=== PATIENT | female | born 1950 | race Two or more races ===

== ENCOUNTER 2019-08-28 23:20 | Inpatient (IN) | payer OTHER ==
[~2019-08-28] VITALS: Ht 167.6 cm; Wt 120.5 kg
[~2019-08-28 23:20] MED LIST: ALL300T PO; ATOR10TA52 PO; DOXY-286 PO; ESCI10TA53 PO; FURO40TA4 PO; GLIP-110 PO; LINA5TAB PO; LISI-646 PO; MONT10TA23 PO; PRED-188 PO
[2019-08-29 00:40] LABS: Basophils # (auto) 0 10 ^3/uL (0-0.2); Basophils % (auto) 0.3 % (0.0-2.0); Eosinophils # (auto) 0 10 ^3/uL (0-0.8); Eosinophils % (auto) 0.1 % (0.0-7.0); Hematocrit 31.8 % (36.0-46.0); Hemoglobin 10.3 g/dL (12.2-16.2); Lymphocytes % (auto) 11.1 % (10.0-50.0); Mean Corpuscular Hemoglobin 28.4 pg (28.0-32.0); Mean Corpuscular Hgb Conc. 32.5 g/dL (32.0-36.0); Mean Corpuscular Volume 87.2 fL (80.0-100.0); Monocytes # (auto) 0.5 10 ^3/uL (0-1.3); Monocytes % (auto) 5.1 % (0.0-12.0); Neutrophils # (auto) 7.6 10 ^3/uL (1.6-8.6); Neutrophils % (auto) 83.4 % (37.0-80.0); Nucleated Red Blood Cells % 0.1 %; Platelet Count (auto) 239 10^3/uL (140-450); Red Blood Cells 3.65 10^6/uL (4.0-5.20); Red Cell Distribution Width 14.6 % (11.8-14.3); White Blood Cell 9.1 10^3/uL (4.4-10.8)
[2019-08-29 00:54] LABS: Alanine Aminotransferase 26 U/L (13-56); Albumin 3.1 g/dL (3.4-5.0); Anion Gap 6 (5-15); Aspartate Aminotransferase 22 U/L (15-37); BUN/Creatinine Ratio 24.7; Blood Urea Nitrogen 42 mg/dL (7-18); Calcium 8.8 mg/dL (8.5-10.1); Carbon Dioxide 31 mmol/L (21-32); Chloride 82 mmol/L (98-107); GFR African American 39 mL/min; GFR Non-African American 32 mL/min; Glucose 154 mg/dL (74-106); Potassium 4.4 mmol/L (3.5-5.1)
[2019-08-29 00:56] LABS: Sodium 119 mmol/L (136-145)
[2019-08-29 00:59] LABS: Alkaline Phosphatase 178 U/L (45-117); Bilirubin, Total 0.5 mg/dL (0.2-1.0); Total Protein 6.9 g/dL (6.4-8.2)
[2019-08-29 01:10] LABS: INR 1.04 (0.9-1.15); Partial Thromboplastin Time 29.3 sec (23.64-32.05)
[2019-08-29 01:13] LABS: Magnesium 1.4 mg/dL (1.6-2.6); Uric Acid 4.8 mg/dL (2.6-6.0)
[2019-08-29] MEDS ORDERED: SODIUM CHL 3% 500 ML IV ONE ×2 (01:30→03:00)
[2019-08-29] MEDS ORDERED: GABAPENTIN 300 MG CAP PO ONE (02:30)
[2019-08-29] MEDS ORDERED: DEXTROSE (50%) 50ML SYRG IV PRN (03:00)
[2019-08-29] MEDS ORDERED: TEMAZEPAM 15 MG CAP PO PRN (03:00)
[2019-08-29] MEDS ORDERED: ONDANSETRON HCL 4 MG/2 ML VIAL IV PRN (03:00)
[2019-08-29] MEDS ORDERED: MORPHINE SULF INJ 2 MG/ML SYRINGE 1ML IV PRN (03:00)
[2019-08-29] MEDS ORDERED: NITROGLYCERIN 0.4 MG SL TAB SL PRN (03:00)
[2019-08-29] MEDS ORDERED: FUROSEMIDE 40 MG/4 ML VIAL IV ONE (03:30)
[2019-08-29] MEDS ORDERED: FUROSEMIDE 20 MG/2 ML VIAL ONE (04:38)
[2019-08-29 04:50] LABS: Urine Amorphous Crystal FEW /hpf (None Seen); Urine Bacteria MOD /hpf (None Seen); Urine Blood Negative /uL (Negative); Urine Specific Gravity 1.007 (1.001-1.035); Urine WBC 53 /hpf (0 - 5)
[2019-08-29] MEDS: ACETAMINOPHEN 325 MG TAB PO PRN ×2 (05:40→12:57)
[2019-08-29] MEDS: InsuLIN REG 1unit/0.01ml Soln (100units/ml) SC SCH ×4 (06:24→22:00)
[2019-08-29] MEDS: ACCU-CHEK COMFORT CURVE STRIP VI SCH ×4 (06:24→22:16)
[2019-08-29] MEDS ORDERED: FUROSEMIDE 40 MG TAB PO SCH (10:00)
[2019-08-29] MEDS ORDERED: LISINOPRIL 20 MG TAB PO SCH (10:00)
[2019-08-29 10:30] VITALS: BP 156/64
[2019-08-29] MEDS: PANTOPRAZOLE 40 MG TAB PO SCH (11:05)
[2019-08-29] MEDS: ALLOPURINOL 300 MG TAB PO SCH (11:06)
[2019-08-29] MEDS ORDERED: MAGNESIUM OXIDE 400 MG TAB PO ONE (11:45)
[2019-08-29 12:02] LABS: BUN/Creatinine Ratio 24.2; Calcium 8.9 mg/dL (8.5-10.1); Potassium 4.2 mmol/L (3.5-5.1)
[2019-08-29 13:29] VITALS: BP 116/57
[2019-08-29] MEDS: SODIUM CHLORIDE 0.9% 1,000 ML IV SCH (15:56)
[2019-08-29] MEDS: levoFLOXacin 500MG 100 ML IV SCH (16:36)
[2019-08-29 17:23] VITALS: BP 110/50
[2019-08-29] MEDS ORDERED: FUROSEMIDE 20 MG/2 ML VIAL IV SCH (18:00)
[2019-08-29 21:35] LABS: BUN/Creatinine Ratio 21.5; Calcium 8.8 mg/dL (8.5-10.1); Potassium 4.3 mmol/L (3.5-5.1)
[2019-08-29 22:00] VITALS: BP 118/55
[2019-08-29] MEDS: ATORVASTATIN 20 MG TAB PO SCH (22:15)
[2019-08-29] MEDS: MONTELUKAST SODIUM 10 MG TAB PO SCH (22:15)
[2019-08-30] MEDS ORDERED: HYDROcodone-ACET 5/325MG TAB PO PRN (01:00)
[2019-08-30] MEDS: SODIUM CHLORIDE 0.9% 1,000 ML IV SCH (01:40)
[2019-08-30 05:00] VITALS: BP 142/75
[2019-08-30 05:34] LABS: Basophils # (auto) 0 10 ^3/uL (0-0.2); Basophils % (auto) 0.5 % (0.0-2.0); Eosinophils # (auto) 0 10 ^3/uL (0-0.8); Eosinophils % (auto) 0.7 % (0.0-7.0); Hemoglobin 9.6 g/dL (12.2-16.2); Lymphocytes # (auto) 1.5 10 ^3/uL (0.4-5.4); Lymphocytes % (auto) 23.2 % (10.0-50.0); Mean Corpuscular Hemoglobin 28.6 pg (28.0-32.0); Mean Corpuscular Volume 86.8 fL (80.0-100.0); Monocytes # (auto) 0.4 10 ^3/uL (0-1.3); Monocytes % (auto) 5.2 % (0.0-12.0); Neutrophils # (auto) 4.7 10 ^3/uL (1.6-8.6); Neutrophils % (auto) 70.4 % (37.0-80.0); Platelet Count (auto) 216 10^3/uL (140-450); Red Blood Cells 3.35 10^6/uL (4.0-5.20); Red Cell Distribution Width 14.9 % (11.8-14.3); White Blood Cell 6.7 10^3/uL (4.4-10.8)
[2019-08-30 05:55] LABS: Potassium 4.3 mmol/L (3.5-5.1)
[2019-08-30 06:03] LABS: Albumin 2.9 g/dL (3.4-5.0); BUN/Creatinine Ratio 23.2; Bilirubin, Total 0.5 mg/dL (0.2-1.0); Calcium 8.7 mg/dL (8.5-10.1); Total Protein 6.2 g/dL (6.4-8.2)
[2019-08-30] MEDS: ACCU-CHEK COMFORT CURVE STRIP VI SCH ×4 (06:53→21:42)
[2019-08-30] MEDS: InsuLIN REG 1unit/0.01ml Soln (100units/ml) SC SCH ×4 (06:53→21:42)
[2019-08-30 08:00] VITALS: BP 125/53
[2019-08-30 08:50] VITALS: BP 125/53
[2019-08-30] MEDS: levoFLOXacin 500MG 100 ML IV SCH (09:45)
[2019-08-30] MEDS: ALLOPURINOL 300 MG TAB PO SCH (09:45)
[2019-08-30] MEDS: PANTOPRAZOLE 40 MG TAB PO SCH (09:45)
[2019-08-30] MEDS ORDERED: FUROSEMIDE 40 MG/4 ML VIAL IV ONE (12:15)
[2019-08-30] MEDS ORDERED: FUROSEMIDE 20 MG/2 ML VIAL IV ONE (12:30)
[2019-08-30 12:47] VITALS: BP 114/55
[2019-08-30 16:40] VITALS: BP 149/64
[2019-08-30 17:04] LABS: Calcium 9.1 mg/dL (8.5-10.1); Potassium 4.6 mmol/L (3.5-5.1)
[2019-08-30 17:06] LABS: BUN/Creatinine Ratio 20.5
[2019-08-30] MEDS: ATORVASTATIN 20 MG TAB PO SCH (21:34)
[2019-08-30] MEDS: MONTELUKAST SODIUM 10 MG TAB PO SCH (21:34)
[2019-08-30 22:00] VITALS: BP 129/63
[2019-09-01] MEDS ORDERED: levoFLOXacin 500MG 100 ML IV SCH (15:30)
== END 2019-08-30 22:01 | disposition short-term general hospital (02) | DRG 641 ==
LOC: EDSEX 23:20 → EDBD 23:20 → ER 23:28 → TELE 23:29 → TELE-CENTR 08-29 09:45
PROVIDERS: ADMIT Nurse Practitioner; ATTEND Internal Medicine
DX: E87.1 Hypo-osmolality and hyponatremia (principal); N39.0 Urinary tract infection, site not specified; Z68.41 Body mass index [BMI] 40.0-44.9, adult; I13.0 Hypertensive heart and chronic kidney disease with heart failure and stage 1 through stage 4 chronic kidney disease, or unspecified chronic kidney disease; I50.9 Heart failure, unspecified; M17.12 Unilateral primary osteoarthritis, left knee; D63.8 Anemia in other chronic diseases classified elsewhere; E66.01 Morbid (severe) obesity due to excess calories; N18.3 Chronic kidney disease, stage 3 (moderate); M10.9 Gout, unspecified; E78.5 Hyperlipidemia, unspecified; K58.9 Irritable bowel syndrome, unspecified; J45.909 Unspecified asthma, uncomplicated; E11.22 Type 2 diabetes mellitus with diabetic chronic kidney disease; Z90.49 Acquired absence of other specified parts of digestive tract; Z79.899 Other long term (current) drug therapy
CPT/HCPCS: 36415; 70450; 71045; 73562; 80048; 80053; 81001; 82962; 83605; 83735; 83880; 83930; 83935; 84295; 84300; 84443; 84484; 84550; 85025; 85379; 85610; 85730; 87040; 87086; 93005; 93306; 93886; 93970; 97163; G0378; J1815; J1956

== ENCOUNTER 2022-07-22 08:36 | Inpatient (IN) | payer OTHER ==
[~2022-07-22] VITALS: Ht 167.6 cm; Wt 109.4 kg
[~2022-07-22 08:36] MED LIST changes: +ESCI-28 PO; -ESCI10TA53 PO; -LISI-646 PO; +LISI20TA28 PO
[2022-07-22] MEDS ORDERED: FUROSEMIDE 40 MG/4 ML VIAL IV ONE (09:00)
[2022-07-22] MEDS ORDERED: cefTRIAXone 1GM/50ML D5W 50 ML IV ONE (09:15)
[2022-07-22 09:21] LABS: Basophils # (auto) 0 10 ^3/uL (0-0.2); Basophils % (auto) 0.1 % (0.0-2.0); Eosinophils # (auto) 0 10 ^3/uL (0-0.8); Hematocrit 30.2 % (36.0-46.0); Hemoglobin 10.1 g/dL (12.2-16.2); Lymphocytes # (auto) 0.3 10 ^3/uL (0.4-5.4); Lymphocytes % (auto) 2.1 % (10.0-50.0); Mean Corpuscular Hemoglobin 30.5 pg (28.0-32.0); Mean Corpuscular Hgb Conc. 33.4 g/dL (32.0-36.0); Mean Corpuscular Volume 91.4 fL (80.0-100.0); Monocytes # (auto) 0.5 10 ^3/uL (0-1.3); Monocytes % (auto) 3.2 % (0.0-12.0); Neutrophils # (auto) 14.7 10 ^3/uL (1.6-8.6); Neutrophils % (auto) 94.6 % (37.0-80.0); Red Blood Cells 3.31 10^6/uL (4.0-5.20); White Blood Cell 15.5 10^3/uL (4.4-10.8)
[2022-07-22 09:40] LABS: Albumin 3.5 g/dL (3.4-5.0); BUN/Creatinine Ratio 19.8; Calcium 8.7 mg/dL (8.5-10.1)
[2022-07-22 09:42] LABS: Bilirubin, Total 1.1 mg/dL (0.2-1.0); Total Protein 7.2 g/dL (6.4-8.2)
[2022-07-22] MEDS ORDERED: LISI-285 PO (13:46)
[2022-07-22] MEDS ORDERED: ALL300T PO (13:46)
[2022-07-22] MEDS ORDERED: ESCI-34 PO (13:46)
[2022-07-22] MEDS ORDERED: FURO40TA4 PO (13:46)
[2022-07-22] MEDS ORDERED: MONT-8 PO (13:46)
[2022-07-22] MEDS ORDERED: GLIP5TAB12 PO (13:46)
[2022-07-22] MEDS ORDERED: ATOR10TA52 PO (13:47)
[2022-07-22] MEDS ORDERED: methylPREDNISolone SOD SUCC 125 MG/2 ML VL IV ONE (14:15)
[2022-07-22] MEDS ORDERED: FUROSEMIDE 20 MG/2 ML VIAL IV ONE (14:15)
[2022-07-22] MEDS ORDERED: AZITHROMYCIN 500MG/ 250ML 250 ML IV ONE (14:15)
[2022-07-22] MEDS ORDERED: DEXTROSE (50%) 50ML SYRG IV PRN (14:15)
[2022-07-22] MEDS ORDERED: PANTOPRAZOLE 40 MG/10 ML VIAL INJ IV ONE (14:15)
[2022-07-22] MEDS ORDERED: ALBUTEROL SULF 2.5 MG/0.5ML(0.5%) NEB SOLN NEB PRN (14:15)
[2022-07-22] MEDS ORDERED: MORPHINE SULFATE INJ 2 MG/ml SYRG IV PRN (14:15)
[2022-07-22] MEDS ORDERED: NITROGLYCERIN 0.4 MG SL TAB SL PRN (14:15)
[2022-07-22 15:04] VITALS: BP 143/63
[2022-07-22 15:39] LABS: Magnesium 1.5 mg/dL (1.6-2.6)
[2022-07-22 15:41] LABS: Phosphorus 2.2 mg/dL (2.5-4.90)
[2022-07-22] MEDS ORDERED: ALBUTEROL MEDNEB 2.5 mg/3ml NEB ONE ×3 (15:52→22:15)
[2022-07-22] MEDS: ACCU-CHEK COMFORT CURVE STRIP VI SCH ×2 (17:00→22:11)
[2022-07-22] MEDS: InsuLIN REG 1unit/0.01ml Soln (100units/ml) SC SCH ×2 (17:43→22:17)
[2022-07-22] MEDS: IPRATROPIUM BROM 0.5 MG/2.5ML INH SOL NEB SCH ×2 (18:52→22:59)
[2022-07-22] MEDS: ALBUTEROL SULF 2.5 MG/0.5ML(0.5%) NEB SOLN NEB SCH ×2 (18:53→22:59)
[2022-07-22] MEDS: methylPREDNISolone SOD SUCC 125 MG/2 ML VL IV SCH (22:18)
[2022-07-22] MEDS: HEPARIN SODIUM (PORCINE) 5000 UNITS/ML 1ML VIAL SC SCH (22:21)
[2022-07-22] MEDS: ATORVASTATIN 20 MG TAB PO SCH (22:22)
[2022-07-23] MEDS: ALBUTEROL SULF 2.5 MG/0.5ML(0.5%) NEB SOLN NEB SCH ×6 (02:00→22:53)
[2022-07-23] MEDS: IPRATROPIUM BROM 0.5 MG/2.5ML INH SOL NEB SCH ×6 (02:00→22:53)
[2022-07-23 05:08] LABS: Hematocrit 31.8 % (36.0-46.0); Hemoglobin 10.3 g/dL (12.2-16.2); Mean Corpuscular Hemoglobin 29.5 pg (28.0-32.0); Mean Corpuscular Hgb Conc. 32.3 g/dL (32.0-36.0); Mean Corpuscular Volume 91.5 fL (80.0-100.0); Red Blood Cells 3.48 10^6/uL (4.0-5.20); Red Cell Distribution Width 15.2 % (11.8-14.3)
[2022-07-23 05:10] LABS: Basophils % (manual) 0 (0.0-2.0); Blast Cells 0; Eosinophils % (manual) 0 (0-7); Lymphocytes % (manual) 0 (10.0-50.0); Metamyelocytes % 0; Monocytes % (manual) 0 (0-12); Myelocytes % 0; Promyelocytes % 0; Reactive Lymphocytes 0
[2022-07-23 05:27] LABS: Albumin 3.1 g/dL (3.4-5.0); Calcium 9.5 mg/dL (8.5-10.1); Potassium 4.4 mmol/L (3.5-5.1)
[2022-07-23 05:30] LABS: Bilirubin, Total 0.8 mg/dL (0.2-1.0); Total Protein 7.1 g/dL (6.4-8.2)
[2022-07-23 05:32] LABS: Band Neutrophils % (manual) 33
[2022-07-23] MEDS ORDERED: ALBUTEROL MEDNEB 2.5 mg/3ml NEB ONE ×5 (05:44→21:54)
[2022-07-23] MEDS: ACCU-CHEK COMFORT CURVE STRIP VI SCH ×4 (06:25→22:14)
[2022-07-23] MEDS: InsuLIN REG 1unit/0.01ml Soln (100units/ml) SC SCH ×4 (06:28→22:16)
[2022-07-23] MEDS: cefTRIAXone 1GM/50ML D5W 50 ML IV SCH (08:56)
[2022-07-23] MEDS ORDERED: AZITHROMYCIN 500MG/ 250ML 250 ML IV SCH (10:00)
[2022-07-23] MEDS ORDERED: PANTOPRAZOLE 40 MG/10 ML VIAL INJ IV SCH (10:00)
[2022-07-23] MEDS: ALLOPURINOL 300 MG TAB PO SCH (10:23)
[2022-07-23] MEDS: methylPREDNISolone SOD SUCC 125 MG/2 ML VL IV SCH ×2 (10:24→22:32)
[2022-07-23] MEDS: FUROSEMIDE 20 MG/2 ML VIAL IV SCH (10:24)
[2022-07-23] MEDS: CITALOPRAM HYDROBR 20 MG TAB PO SCH (10:25)
[2022-07-23] MEDS: HCTZ 25 MG TAB PO SCH (10:25)
[2022-07-23] MEDS: MONTELUKAST SODIUM 10 MG TAB PO SCH (10:26)
[2022-07-23] MEDS: LISINOPRIL 20 MG TAB PO SCH (10:26)
[2022-07-23] MEDS: HEPARIN SODIUM (PORCINE) 5000 UNITS/ML 1ML VIAL SC SCH ×2 (10:28→22:32)
[2022-07-23] MEDS: MAGNESIUM SULFATE 1GM/100ML 100 ML IV SCH ×2 (13:52→16:42)
[2022-07-23 15:18] LABS: Urine Bacteria FEW /hpf (None Seen); Urine Blood Negative /uL (Negative); Urine Hyaline Cast FEW /lpf (0 - 2); Urine Mucus FEW (None Seen); Urine WBC 1 /hpf (0 - 5)
[2022-07-23 15:25] LABS: Protein, Urine 79.1 mg/dL (0.0-11.9)
[2022-07-23] MEDS ORDERED: IPRATROPIUM BROM 0.5 MG/2.5ML INH SOL ONE (18:12)
[2022-07-23 19:23] VITALS: BP 135/67
[2022-07-23 22:00] VITALS: BP 133/64
[2022-07-23] MEDS: ATORVASTATIN 20 MG TAB PO SCH (22:31)
[2022-07-24] MEDS ORDERED: ALBUTEROL MEDNEB 2.5 mg/3ml NEB ONE ×6 (01:58→21:39)
[2022-07-24] MEDS: IPRATROPIUM BROM 0.5 MG/2.5ML INH SOL NEB SCH ×6 (02:29→21:51)
[2022-07-24] MEDS: ALBUTEROL SULF 2.5 MG/0.5ML(0.5%) NEB SOLN NEB SCH ×6 (02:29→21:51)
[2022-07-24 05:00] VITALS: BP 144/71
[2022-07-24] MEDS: ACCU-CHEK COMFORT CURVE STRIP VI SCH ×4 (06:51→21:58)
[2022-07-24] MEDS: InsuLIN REG 1unit/0.01ml Soln (100units/ml) SC SCH ×4 (06:57→21:58)
[2022-07-24 08:00] VITALS: BP 110/72
[2022-07-24 08:33] VITALS: BP 110/72
[2022-07-24] MEDS: HEPARIN SODIUM (PORCINE) 5000 UNITS/ML 1ML VIAL SC SCH ×2 (09:00→21:56)
[2022-07-24] MEDS: HCTZ 25 MG TAB PO SCH (09:11)
[2022-07-24] MEDS: CITALOPRAM HYDROBR 20 MG TAB PO SCH (09:12)
[2022-07-24] MEDS: AZITHROMYCIN 250 MG TAB PO SCH (09:12)
[2022-07-24] MEDS: ALLOPURINOL 300 MG TAB PO SCH (09:13)
[2022-07-24] MEDS: LISINOPRIL 20 MG TAB PO SCH (09:13)
[2022-07-24] MEDS: MONTELUKAST SODIUM 10 MG TAB PO SCH (09:13)
[2022-07-24] MEDS: FUROSEMIDE 20 MG/2 ML VIAL IV SCH (09:14)
[2022-07-24] MEDS: methylPREDNISolone SOD SUCC 125 MG/2 ML VL IV SCH ×2 (09:14→21:57)
[2022-07-24] MEDS: cefTRIAXone 1GM/50ML D5W 50 ML IV SCH (09:14)
[2022-07-24 12:18] VITALS: BP 127/67
[2022-07-24 17:07] VITALS: BP 150/70
[2022-07-24] MEDS: ATORVASTATIN 20 MG TAB PO SCH (21:57)
[2022-07-24 22:00] VITALS: BP 116/80
[2022-07-25] MEDS ORDERED: ALBUTEROL MEDNEB 2.5 mg/3ml NEB ONE ×6 (01:59→22:12)
[2022-07-25] MEDS: ALBUTEROL SULF 2.5 MG/0.5ML(0.5%) NEB SOLN NEB SCH ×6 (02:08→22:32)
[2022-07-25] MEDS: IPRATROPIUM BROM 0.5 MG/2.5ML INH SOL NEB SCH ×6 (02:08→22:33)
[2022-07-25 05:00] VITALS: BP 135/65
[2022-07-25] MEDS: ACCU-CHEK COMFORT CURVE STRIP VI SCH ×4 (06:21→22:45)
[2022-07-25] MEDS: InsuLIN REG 1unit/0.01ml Soln (100units/ml) SC SCH ×4 (06:22→22:46)
[2022-07-25 09:00] VITALS: BP 136/59
[2022-07-25] MEDS: CITALOPRAM HYDROBR 20 MG TAB PO SCH (09:32)
[2022-07-25] MEDS: HCTZ 25 MG TAB PO SCH (09:32)
[2022-07-25] MEDS: ALLOPURINOL 300 MG TAB PO SCH (09:33)
[2022-07-25] MEDS: MONTELUKAST SODIUM 10 MG TAB PO SCH (09:33)
[2022-07-25] MEDS: AZITHROMYCIN 250 MG TAB PO SCH (09:33)
[2022-07-25] MEDS: LISINOPRIL 20 MG TAB PO SCH (09:33)
[2022-07-25] MEDS: methylPREDNISolone SOD SUCC 125 MG/2 ML VL IV SCH ×2 (09:34→22:43)
[2022-07-25] MEDS: cefTRIAXone 1GM/50ML D5W 50 ML IV SCH (09:34)
[2022-07-25] MEDS: FUROSEMIDE 20 MG/2 ML VIAL IV SCH (09:34)
[2022-07-25] MEDS: HEPARIN SODIUM (PORCINE) 5000 UNITS/ML 1ML VIAL SC SCH ×2 (09:35→22:43)
[2022-07-25 13:00] VITALS: BP 148/74
[2022-07-25 15:05] LABS: BUN/Creatinine Ratio 30.4; Calcium 9.4 mg/dL (8.5-10.1)
[2022-07-25 16:38] VITALS: BP 148/74
[2022-07-25 17:00] VITALS: BP 139/74
[2022-07-25 22:00] VITALS: BP 131/74
[2022-07-25] MEDS: ATORVASTATIN 20 MG TAB PO SCH (22:44)
[2022-07-26] MEDS ORDERED: ALBUTEROL MEDNEB 2.5 mg/3ml NEB ONE ×6 (02:07→21:58)
[2022-07-26] MEDS: IPRATROPIUM BROM 0.5 MG/2.5ML INH SOL NEB SCH ×6 (02:40→22:12)
[2022-07-26] MEDS: ALBUTEROL SULF 2.5 MG/0.5ML(0.5%) NEB SOLN NEB SCH ×6 (02:40→22:12)
[2022-07-26 05:00] VITALS: BP 131/74
[2022-07-26] MEDS: ACCU-CHEK COMFORT CURVE STRIP VI SCH ×4 (06:43→22:00)
[2022-07-26] MEDS: InsuLIN REG 1unit/0.01ml Soln (100units/ml) SC SCH ×4 (06:46→22:38)
[2022-07-26 09:00] VITALS: BP 136/70
[2022-07-26] MEDS: FUROSEMIDE 20 MG/2 ML VIAL IV SCH (09:49)
[2022-07-26] MEDS: methylPREDNISolone SOD SUCC 125 MG/2 ML VL IV SCH ×2 (09:49→22:22)
[2022-07-26] MEDS: cefTRIAXone 1GM/50ML D5W 50 ML IV SCH (09:49)
[2022-07-26] MEDS: AZITHROMYCIN 250 MG TAB PO SCH (09:50)
[2022-07-26] MEDS: LISINOPRIL 20 MG TAB PO SCH (09:50)
[2022-07-26] MEDS: HCTZ 25 MG TAB PO SCH (09:50)
[2022-07-26] MEDS: CITALOPRAM HYDROBR 20 MG TAB PO SCH (09:50)
[2022-07-26] MEDS: MONTELUKAST SODIUM 10 MG TAB PO SCH (09:50)
[2022-07-26] MEDS: ALLOPURINOL 300 MG TAB PO SCH (09:50)
[2022-07-26] MEDS: HEPARIN SODIUM (PORCINE) 5000 UNITS/ML 1ML VIAL SC SCH ×2 (09:52→22:36)
[2022-07-26 13:08] VITALS: BP 139/74
[2022-07-26] MEDS ORDERED: ALB5IS NEB (13:20)
[2022-07-26] MEDS ORDERED: IPR002IS NEB (13:20)
[2022-07-26] MEDS ORDERED: ALBUAER3 IN (13:23)
[2022-07-26] MEDS ORDERED: PRED20TA2 PO (13:23)
[2022-07-26] MEDS ORDERED: AZIT500T66 PO (13:23)
[2022-07-26 17:00] VITALS: BP 142/66
[2022-07-26 22:00] VITALS: BP 130/76
[2022-07-26] MEDS: ATORVASTATIN 20 MG TAB PO SCH (22:21)
[2022-07-27] MEDS ORDERED: ALBUTEROL MEDNEB 2.5 mg/3ml NEB ONE ×6 (01:51→21:52)
[2022-07-27] MEDS: ALBUTEROL SULF 2.5 MG/0.5ML(0.5%) NEB SOLN NEB SCH ×6 (01:55→22:11)
[2022-07-27] MEDS: IPRATROPIUM BROM 0.5 MG/2.5ML INH SOL NEB SCH ×6 (01:55→22:11)
[2022-07-27 05:00] VITALS: BP 130/65
[2022-07-27] MEDS: ACCU-CHEK COMFORT CURVE STRIP VI SCH ×4 (06:44→21:46)
[2022-07-27] MEDS: InsuLIN REG 1unit/0.01ml Soln (100units/ml) SC SCH ×4 (06:45→21:46)
[2022-07-27] MEDS: cefTRIAXone 1GM/50ML D5W 50 ML IV SCH (08:58)
[2022-07-27] MEDS: methylPREDNISolone SOD SUCC 125 MG/2 ML VL IV SCH ×2 (08:58→21:45)
[2022-07-27] MEDS: CITALOPRAM HYDROBR 20 MG TAB PO SCH (08:59)
[2022-07-27] MEDS: MONTELUKAST SODIUM 10 MG TAB PO SCH (08:59)
[2022-07-27] MEDS: AZITHROMYCIN 250 MG TAB PO SCH (08:59)
[2022-07-27] MEDS: FUROSEMIDE 20 MG/2 ML VIAL IV SCH (08:59)
[2022-07-27 09:00] VITALS: BP 130/73
[2022-07-27] MEDS: ALLOPURINOL 300 MG TAB PO SCH (09:00)
[2022-07-27] MEDS: HEPARIN SODIUM (PORCINE) 5000 UNITS/ML 1ML VIAL SC SCH ×2 (09:10→21:47)
[2022-07-27 13:03] VITALS: BP 135/68
[2022-07-27 17:00] VITALS: BP 158/86
[2022-07-27] MEDS: ATORVASTATIN 20 MG TAB PO SCH (21:46)
[2022-07-27 22:00] VITALS: BP 112/66
[2022-07-28] MEDS ORDERED: ALBUTEROL MEDNEB 2.5 mg/3ml NEB ONE ×4 (02:09→13:39)
[2022-07-28] MEDS: IPRATROPIUM BROM 0.5 MG/2.5ML INH SOL NEB SCH ×4 (02:45→14:01)
[2022-07-28] MEDS: ALBUTEROL SULF 2.5 MG/0.5ML(0.5%) NEB SOLN NEB SCH ×4 (02:45→14:01)
[2022-07-28 05:00] VITALS: BP 132/70
[2022-07-28] MEDS: ACCU-CHEK COMFORT CURVE STRIP VI SCH ×2 (06:09→12:15)
[2022-07-28] MEDS: InsuLIN REG 1unit/0.01ml Soln (100units/ml) SC SCH ×2 (06:09→12:16)
[2022-07-28 06:11] LABS: Potassium 4.3 mmol/L (3.5-5.1)
[2022-07-28 06:16] LABS: BUN/Creatinine Ratio 41.6
[2022-07-28 09:00] VITALS: BP 122/74
[2022-07-28 09:23] VITALS: BP 132/70
[2022-07-28] MEDS: cefTRIAXone 1GM/50ML D5W 50 ML IV SCH (09:31)
[2022-07-28] MEDS: FUROSEMIDE 20 MG/2 ML VIAL IV SCH (09:31)
[2022-07-28] MEDS: methylPREDNISolone SOD SUCC 125 MG/2 ML VL IV SCH (09:31)
[2022-07-28] MEDS: CITALOPRAM HYDROBR 20 MG TAB PO SCH (09:32)
[2022-07-28] MEDS: MONTELUKAST SODIUM 10 MG TAB PO SCH (09:32)
[2022-07-28] MEDS: AZITHROMYCIN 250 MG TAB PO SCH (09:32)
[2022-07-28] MEDS: ALLOPURINOL 300 MG TAB PO SCH (09:32)
[2022-07-28] MEDS: HEPARIN SODIUM (PORCINE) 5000 UNITS/ML 1ML VIAL SC SCH (09:43)
== END 2022-07-28 13:35 | disposition home health service (06) | DRG 871 ==
LOC: EDBD 08:36 → ER 08:36 → TELE 14:09 → TELE-EAST 07-23 18:32
PROVIDERS: ADMIT Nurse Practitioner Family; ATTEND Internal Medicine
DX: A41.9 Sepsis, unspecified organism (principal); J18.9 Pneumonia, unspecified organism; J96.21 Acute and chronic respiratory failure with hypoxia; N17.0 Acute kidney failure with tubular necrosis; J96.22 Acute and chronic respiratory failure with hypercapnia; I13.0 Hypertensive heart and chronic kidney disease with heart failure and stage 1 through stage 4 chronic kidney disease, or unspecified chronic kidney disease; J44.1 Chronic obstructive pulmonary disease with (acute) exacerbation; Z68.41 Body mass index [BMI] 40.0-44.9, adult; J44.0 Chronic obstructive pulmonary disease with (acute) lower respiratory infection; N18.32 Chronic kidney disease, stage 3b; M10.9 Gout, unspecified; R74.01 Elevation of levels of liver transaminase levels; E11.21 Type 2 diabetes mellitus with diabetic nephropathy; I50.9 Heart failure, unspecified; E11.22 Type 2 diabetes mellitus with diabetic chronic kidney disease; E11.65 Type 2 diabetes mellitus with hyperglycemia; E66.01 Morbid (severe) obesity due to excess calories; E78.5 Hyperlipidemia, unspecified; Z66 Do not resuscitate; D63.1 Anemia in chronic kidney disease; E83.42 Hypomagnesemia; F12.90 Cannabis use, unspecified, uncomplicated; Z80.3 Family history of malignant neoplasm of breast; Z80.41 Family history of malignant neoplasm of ovary; Z81.8 Family history of other mental and behavioral disorders; Z82.0 Family history of epilepsy and other diseases of the nervous system; Z82.3 Family history of stroke; Z82.49 Family history of ischemic heart disease and other diseases of the circulatory system; Z82.5 Family history of asthma and other chronic lower respiratory diseases; Z83.3 Family history of diabetes mellitus; Z85.828 Personal history of other malignant neoplasm of skin; Z87.891 Personal history of nicotine dependence; Z99.81 Dependence on supplemental oxygen; Z90.49 Acquired absence of other specified parts of digestive tract; Z68.38 Body mass index [BMI] 38.0-38.9, adult
CPT/HCPCS: 36415; 71045; 76775; 78582; 80048; 80053; 81001; 82570; 82962; 83605; 83735; 83880; 83970; 84100; 84156; 84300; 84484; 85007; 85025; 85027; 85379; 87040; 87086; 87426; 87804; 93005; 93306; 94640; 96365; 96375; 99291; C9113; G0378; J0696; J1815

== ENCOUNTER 2023-03-26 08:01 | Emergency (ER) | payer OTHER ==
[~2023-03-26] VITALS: Ht 167.6 cm; Wt 113.6 kg
[~2023-03-26 08:01] MED LIST changes: +ALB5IS NEB; +ALBUAER3 IN; +AZIT500T66 PO; -DOXY-286 PO; -ESCI-28 PO; +ESCI1TAB37 PO; -GLIP-110 PO; +IPR002IS NEB; -LISI20TA28 PO; +MONT-8 PO; +PRED20TA2 PO
[2023-03-26] MEDS ORDERED: IPRATROPIUM BROM 0.5 MG/2.5ML INH SOL NEB ONE (08:30)
[2023-03-26] MEDS ORDERED: ALBUTEROL SULF 2.5 MG/0.5ML(0.5%) NEB SOLN NEB ONE ×2 (08:30→11:30)
[2023-03-26 08:50] LABS: Basophils # (auto) 0 10 ^3/uL (0-0.2); Basophils % (auto) 0.3 % (0.0-2.0); Eosinophils # (auto) 0 10 ^3/uL (0-0.8); Hemoglobin 9.6 g/dL (12.2-16.2); Lymphocytes # (auto) 0.9 10 ^3/uL (0.4-5.4); Lymphocytes % (auto) 10.5 % (10.0-50.0); Mean Corpuscular Hemoglobin 29.2 pg (28.0-32.0); Mean Corpuscular Hgb Conc. 32.2 g/dL (32.0-36.0); Mean Corpuscular Volume 90.8 fL (80.0-100.0); Monocytes # (auto) 0.7 10 ^3/uL (0-1.3); Monocytes % (auto) 7.9 % (0.0-12.0); Neutrophils # (auto) 6.7 10 ^3/uL (1.6-8.6); Neutrophils % (auto) 81.3 % (37.0-80.0); Red Cell Distribution Width 15.3 % (11.8-14.3); White Blood Cell 8.3 10^3/uL (4.4-10.8)
[2023-03-26 08:58] LABS: Alanine Aminotransferase 17 U/L (7-40); Alkaline Phosphatase 156 U/L (46-116); Anion Gap 4 (5-15); Aspartate Aminotransferase 19 U/L (13-40); BUN/Creatinine Ratio 13.6 (10.0-20.0); Bilirubin, Total 0.5 mg/dL (0.2-1.0); Blood Urea Nitrogen 24 mg/dL (9-23); Calcium 8.8 mg/dL (8.7-10.4); Carbon Dioxide 30 mmol/L (20-30); Chloride 105 mmol/L (98-107); Glucose 108 mg/dL (74-106); Potassium 4.6 mmol/L (3.5-5.1); Sodium 139 mmol/L (136-145); Total Protein 6.6 g/dL (5.7-8.2)
[2023-03-26 09:10] VITALS: PULSE 62; RESP 20; O2SAT 93
[2023-03-26] MEDS ORDERED: DexAMETHasone SOD PHOS 10MG/1ML VIAL INJ IV ONE (11:30)
[2023-03-26] MEDS ORDERED: CLINDAMYCIN 600MG IV 50 ML IV ONE (11:30)
[2023-03-26] MEDS ORDERED: FUROSEMIDE 20 MG/2 ML VIAL IV ONE (11:30)
[2023-03-26] MEDS ORDERED: VANCOMYCIN PER PHARMACY 1,000 MG IV SCH (11:30)
[2023-03-26] MEDS ORDERED: PANTOPRAZOLE 40 MG/10 ML VIAL INJ IV ONE (11:30)
[2023-03-26] MEDS ORDERED: PIPERACILLIN-TAZOB 3.375GM 100 ML IV ONE (12:00)
[2023-03-26] MEDS ORDERED: ALBUTEROL MEDNEB 2.5 mg/3ml NEB ONE (12:12)
[2023-03-26 12:24] LABS: Base Excess 2.2 mmol/L (-2.0-2.0)
[2023-03-26 12:31] LABS: INR 1.02 (0.9-1.15); Partial Thromboplastin Time 31.9 SEC (24.5-34.5); Prothrombin Time 10.7 sec (9.3-11.8)
[2023-03-26] MEDS ORDERED: VANCOMYCIN 1GM/250ML 250 ML IV ONE (13:00)
[2023-03-26 13:53] LABS: COVID19 ANTIGEN SOFIA FIA POSITIVE (NEGATIVE)
[2023-03-26] MEDS ORDERED: ALBUTEROL SULF HFA 90MCG INH 200DOSE IN PRN (14:30)
[2023-03-26] MEDS ORDERED: ACETAMINOPHEN 500 MG TAB PO PRN (14:30)
[2023-03-26] MEDS ORDERED: REMDESIVIR PER PHARMACY 0 ML IV SCH (14:30)
[2023-03-26 15:00] VITALS: BP 165/68; PULSE 80; RESP 20; TEMP 99.9; O2SAT 94
[2023-03-26 15:03] LABS: Alanine Aminotransferase 12 U/L (7-40); Albumin 3.8 g/dL (3.2-4.8); Alkaline Phosphatase 128 U/L (46-116); Anion Gap 8 (5-15); Aspartate Aminotransferase 21 U/L (13-40); BUN/Creatinine Ratio 12.5 (10.0-20.0); Blood Urea Nitrogen 22 mg/dL (9-23); Carbon Dioxide 27 mmol/L (20-30); Chloride 104 mmol/L (98-107); Glucose 117 mg/dL (74-106); Potassium 4.6 mmol/L (3.5-5.1); Sodium 139 mmol/L (136-145)
[2023-03-26 15:04] LABS: Bilirubin, Total 0.4 mg/dL (0.2-1.0); Total Protein 6.6 g/dL (5.7-8.2)
[2023-03-26 15:12] LABS: CRP High Sensitivity 11.11 mg/dL (<1.0)
[2023-03-26 15:19] LABS: Thyroid Stimulating Hormone 1.69 uIU/mL (0.55-4.78)
[2023-03-26 16:10] LABS: Magnesium 1.4 mg/dL (1.6-2.6)
[2023-03-26] MEDS ORDERED: REMDESIVIR 200 MG in NS 210ml LOADING DOSE ADULT IV ONE (17:00)
[2023-03-26] MEDS ORDERED: PIPERACILLIN-TAZOB 3.375GM 100 ML IV SCH (20:00)
[2023-03-27] MEDS ORDERED: AZITHROMYCIN 500MG/ 250ML 250 ML IV SCH (10:00)
[2023-03-27] MEDS ORDERED: ZINC SULFATE 220mg CAP or TAB PO SCH (10:00)
[2023-03-27] MEDS ORDERED: REMDESIVIR 100mg 100 MG in SODIUM CHL 0.9% 230 ML IV SCH (15:00)
== END 2023-03-26 15:35 | disposition short-term general hospital (02) ==
LOC: EDBD 08:01 → ER 08:01
DX: U07.1 COVID-19 (principal); J44.1 Chronic obstructive pulmonary disease with (acute) exacerbation; I25.10 Atherosclerotic heart disease of native coronary artery without angina pectoris; I13.0 Hypertensive heart and chronic kidney disease with heart failure and stage 1 through stage 4 chronic kidney disease, or unspecified chronic kidney disease; I50.9 Heart failure, unspecified; E11.22 Type 2 diabetes mellitus with diabetic chronic kidney disease; N18.9 Chronic kidney disease, unspecified; M10.9 Gout, unspecified; E78.5 Hyperlipidemia, unspecified; Z90.49 Acquired absence of other specified parts of digestive tract; Z79.899 Other long term (current) drug therapy
CPT/HCPCS: 36415; 36600; 71045; 80053; 82306; 82550; 82728; 82805; 83605; 83615; 83735; 83880; 84443; 84484; 85025; 85379; 85610; 85730; 86141; 87040; 87426; 93005; 94640; 96365; 96366; 96367; 96375; 99291; C9113; J1100; J1940; J3370; J3490; J7644

== ENCOUNTER 2025-02-01 12:01 | Outpatient (CLI) | payer OTHER ==
[2025-02-01 12:34] LABS: Hematocrit 31.0 % (36.0-46.0); Hemoglobin 10.4 g/dL (12.2-16.2); Mean Corpuscular Hemoglobin 30.6 pg (28.0-32.0); Mean Corpuscular Volume 91.7 fL (80.0-100.0); Nucleated Red Blood Cells % 0.0 %
[2025-02-01 12:56] LABS: Albumin 4.1 g/dL (3.2-4.8); Anion Gap 5 (5-15); BUN/Creatinine Ratio 15.2 (10.0-20.0); Bilirubin, Total 0.7 mg/dL (0.2-1.0); Calcium 9.0 mg/dL (8.7-10.4); Carbon Dioxide 31 mmol/L (20-31); Cholesterol 191 mg/dL (< 200); Glucose 89 mg/dL (74-106); HDL Cholesterol 42 mg/dL (40-59); Potassium 4.9 mmol/L (3.5-5.1); Sodium 145 mmol/L (136-145); Total Protein 6.6 g/dL (5.7-8.2); Triglycerides 114 mg/dL (< 150)
[2025-02-01 12:58] LABS: Alanine Aminotransferase < 9 U/L (7-40); Alkaline Phosphatase 118 U/L (46-116); Blood Urea Nitrogen 32 mg/dL (9-23); Chloride 109 mmol/L (98-107)
== END 2025-02-01 17:00 | disposition home or self-care (01) ==
LOC: LAB 12:01
PROVIDERS: ATTEND Specialist
DX: E11.22 Type 2 diabetes mellitus with diabetic chronic kidney disease (principal); N18.9 Chronic kidney disease, unspecified; E11.65 Type 2 diabetes mellitus with hyperglycemia; J44.1 Chronic obstructive pulmonary disease with (acute) exacerbation; E11.21 Type 2 diabetes mellitus with diabetic nephropathy; E66.01 Morbid (severe) obesity due to excess calories; M10.9 Gout, unspecified; Z99.81 Dependence on supplemental oxygen; F11.20 Opioid dependence, uncomplicated; E78.5 Hyperlipidemia, unspecified; E11.42 Type 2 diabetes mellitus with diabetic polyneuropathy; F41.9 Anxiety disorder, unspecified
CPT/HCPCS: 36415; 80053; 80061; 83036; 85025

== ENCOUNTER 2025-02-01 12:19 | Outpatient (CLI) | payer OTHER ==
[2025-02-01 12:56] LABS: Base Excess 1.1 mmol/L (-2.0-3.0)
== END 2025-02-01 17:00 | disposition home or self-care (01) ==
LOC: RT 12:19
PROVIDERS: ATTEND Specialist
DX: J44.1 Chronic obstructive pulmonary disease with (acute) exacerbation (principal)
CPT/HCPCS: 36600; 82805

== ENCOUNTER 2025-02-01 13:16 | Emergency (ER) | payer OTHER | END 2025-02-01 13:22 | disposition left against medical advice (07) | LOC: ER 13:16 | DX: R06.02 Shortness of breath (principal); Z53.21 Procedure and treatment not carried out due to patient leaving prior to being seen by health care provider ==